=== PATIENT | male | born 1970 | race Caucasian/White ===

== ENCOUNTER 2023-04-25 09:11 | Outpatient (CLI) | payer OTHER, MEDICAID | END 2023-04-25 09:12 | disposition home or self-care (01) | LOC: CSHWCC 09:11 | PROVIDERS: ATTEND Physician Assistant | DX: E10.21 Type 1 diabetes mellitus with diabetic nephropathy (principal); L97.222 Non-pressure chronic ulcer of left calf with fat layer exposed; I73.9 Peripheral vascular disease, unspecified; N18.6 End stage renal disease; Z71.6 Tobacco abuse counseling | CPT/HCPCS: 97597; 97598; G0463; 99215 ==

== ENCOUNTER 2023-04-28 08:28 | Outpatient (CLI) | payer OTHER, MEDICAID | END 2023-04-28 08:29 | disposition home or self-care (01) | LOC: CSHWCC 08:28 | PROVIDERS: ATTEND Physician Assistant | DX: L97.222 Non-pressure chronic ulcer of left calf with fat layer exposed (principal); I73.9 Peripheral vascular disease, unspecified | CPT/HCPCS: 99211; G0463 ==

== ENCOUNTER 2023-05-07 08:25 | Outpatient (CLI) | payer OTHER, MEDICAID | END 2023-05-07 08:26 | disposition home or self-care (01) | LOC: CSHWCC 08:25 | PROVIDERS: ATTEND Preventive Medicine Undersea and Hyperbaric Medicine | DX: E10.21 Type 1 diabetes mellitus with diabetic nephropathy (principal); E11.51 Type 2 diabetes mellitus with diabetic peripheral angiopathy without gangrene; E10.22 Type 1 diabetes mellitus with diabetic chronic kidney disease; N18.6 End stage renal disease; I87.2 Venous insufficiency (chronic) (peripheral); Z71.6 Tobacco abuse counseling | CPT/HCPCS: 11042; 11045; 29581 ==

== ENCOUNTER 2023-05-13 10:12 | Outpatient (CLI) | payer OTHER, MEDICAID | END 2023-05-13 10:13 | disposition home or self-care (01) | LOC: CSHWCC 10:12 | PROVIDERS: ATTEND Physician Assistant | DX: I87.2 Venous insufficiency (chronic) (peripheral) (principal); E10.21 Type 1 diabetes mellitus with diabetic nephropathy; E10.22 Type 1 diabetes mellitus with diabetic chronic kidney disease; N18.6 End stage renal disease; I73.9 Peripheral vascular disease, unspecified; Z71.6 Tobacco abuse counseling | CPT/HCPCS: 29581; 87070; 87077; 87186; 87205; 97597; 97598; G0463; 99213 ==

== ENCOUNTER 2023-05-20 09:05 | Outpatient (CLI) | payer OTHER, MEDICAID | END 2023-05-20 09:06 | disposition home or self-care (01) | LOC: CSHWCC 09:05 | PROVIDERS: ATTEND Physician Assistant | DX: I87.2 Venous insufficiency (chronic) (peripheral) (principal); I73.9 Peripheral vascular disease, unspecified; E10.21 Type 1 diabetes mellitus with diabetic nephropathy; N18.6 End stage renal disease; Z71.6 Tobacco abuse counseling | CPT/HCPCS: 29581 ==

== ENCOUNTER 2023-05-23 08:47 | Outpatient (CLI) | payer OTHER, MEDICAID | END 2023-05-23 08:48 | disposition home or self-care (01) | LOC: CSHWCC 08:47 | PROVIDERS: ATTEND Physician Assistant | DX: E10.21 Type 1 diabetes mellitus with diabetic nephropathy (principal); E10.22 Type 1 diabetes mellitus with diabetic chronic kidney disease; I73.9 Peripheral vascular disease, unspecified; I87.2 Venous insufficiency (chronic) (peripheral); N18.6 End stage renal disease; Z71.6 Tobacco abuse counseling | CPT/HCPCS: 29581 ==

== ENCOUNTER 2023-05-27 10:29 | Outpatient (CLI) | payer OTHER, MEDICAID | END 2023-05-27 10:30 | disposition home or self-care (01) | LOC: CSHWCC 10:29 | PROVIDERS: ATTEND Physician Assistant | DX: E10.21 Type 1 diabetes mellitus with diabetic nephropathy (principal); L97.222 Non-pressure chronic ulcer of left calf with fat layer exposed; I87.2 Venous insufficiency (chronic) (peripheral); N18.6 End stage renal disease; I73.9 Peripheral vascular disease, unspecified; Z71.6 Tobacco abuse counseling | CPT/HCPCS: 29581; 97597 ==

== ENCOUNTER 2023-06-17 11:08 | Outpatient (CLI) | payer OTHER, MEDICAID | END 2023-06-17 11:09 | disposition home or self-care (01) | LOC: CSHWCC 11:08 | PROVIDERS: ATTEND Preventive Medicine Undersea and Hyperbaric Medicine | DX: E10.21 Type 1 diabetes mellitus with diabetic nephropathy (principal); E10.51 Type 1 diabetes mellitus with diabetic peripheral angiopathy without gangrene; E10.22 Type 1 diabetes mellitus with diabetic chronic kidney disease; N18.6 End stage renal disease; I87.2 Venous insufficiency (chronic) (peripheral); L97.222 Non-pressure chronic ulcer of left calf with fat layer exposed; Z99.2 Dependence on renal dialysis; Z71.6 Tobacco abuse counseling | CPT/HCPCS: 29581 ==

== ENCOUNTER 2023-06-20 11:17 | Outpatient (CLI) | payer OTHER, MEDICAID | END 2023-06-20 11:18 | disposition home or self-care (01) | LOC: CSHWCC 11:17 | PROVIDERS: ATTEND Preventive Medicine Undersea and Hyperbaric Medicine | DX: E10.622 Type 1 diabetes mellitus with other skin ulcer (principal); L97.222 Non-pressure chronic ulcer of left calf with fat layer exposed; E10.51 Type 1 diabetes mellitus with diabetic peripheral angiopathy without gangrene; E10.22 Type 1 diabetes mellitus with diabetic chronic kidney disease; N18.6 End stage renal disease; I87.2 Venous insufficiency (chronic) (peripheral); Z71.6 Tobacco abuse counseling; Z99.2 Dependence on renal dialysis | CPT/HCPCS: 29581 ==

== ENCOUNTER 2023-06-24 15:16 | Outpatient (CLI) | payer OTHER, MEDICAID | END 2023-06-24 15:17 | disposition home or self-care (01) | LOC: CSHWCC 15:16 | PROVIDERS: ATTEND Preventive Medicine Undersea and Hyperbaric Medicine | DX: E10.21 Type 1 diabetes mellitus with diabetic nephropathy (principal); E10.51 Type 1 diabetes mellitus with diabetic peripheral angiopathy without gangrene; E10.22 Type 1 diabetes mellitus with diabetic chronic kidney disease; N18.6 End stage renal disease; I87.2 Venous insufficiency (chronic) (peripheral); L97.222 Non-pressure chronic ulcer of left calf with fat layer exposed; Z99.2 Dependence on renal dialysis; Z71.6 Tobacco abuse counseling ==

== ENCOUNTER 2023-06-27 11:08 | Outpatient (CLI) | payer OTHER, MEDICAID | END 2023-06-27 11:09 | disposition home or self-care (01) | LOC: CSHWCC 11:08 | PROVIDERS: ATTEND Preventive Medicine Undersea and Hyperbaric Medicine | DX: E10.21 Type 1 diabetes mellitus with diabetic nephropathy (principal); E10.622 Type 1 diabetes mellitus with other skin ulcer; L97.222 Non-pressure chronic ulcer of left calf with fat layer exposed; I73.9 Peripheral vascular disease, unspecified; N18.6 End stage renal disease; I87.2 Venous insufficiency (chronic) (peripheral); Z71.6 Tobacco abuse counseling | CPT/HCPCS: 29581 ==

== ENCOUNTER 2023-07-01 09:10 | Outpatient (CLI) | payer OTHER, MEDICAID | END 2023-07-01 09:11 | disposition home or self-care (01) | LOC: CSHWCC 09:10 | PROVIDERS: ATTEND Physician Assistant | DX: L97.222 Non-pressure chronic ulcer of left calf with fat layer exposed (principal); I87.2 Venous insufficiency (chronic) (peripheral); E11.21 Type 2 diabetes mellitus with diabetic nephropathy; E11.22 Type 2 diabetes mellitus with diabetic chronic kidney disease; N18.6 End stage renal disease; E11.59 Type 2 diabetes mellitus with other circulatory complications; Z71.6 Tobacco abuse counseling | CPT/HCPCS: 29581; G0463; 99213 ==

== ENCOUNTER 2023-07-04 11:47 | Outpatient (CLI) | payer OTHER, MEDICAID | END 2023-07-04 11:48 | disposition home or self-care (01) | LOC: CSHWCC 11:47 | PROVIDERS: ATTEND Physician Assistant | DX: E11.21 Type 2 diabetes mellitus with diabetic nephropathy (principal); E11.622 Type 2 diabetes mellitus with other skin ulcer; L97.222 Non-pressure chronic ulcer of left calf with fat layer exposed; I87.2 Venous insufficiency (chronic) (peripheral); I73.9 Peripheral vascular disease, unspecified; N18.6 End stage renal disease; Z71.6 Tobacco abuse counseling | CPT/HCPCS: 29581 ==

== ENCOUNTER 2023-07-07 15:11 | Outpatient (CLI) | payer OTHER, MEDICAID | END 2023-07-07 15:12 | disposition home or self-care (01) | LOC: CSHWCC 15:11 | PROVIDERS: ATTEND Physician Assistant | DX: I87.2 Venous insufficiency (chronic) (peripheral) (principal); E11.21 Type 2 diabetes mellitus with diabetic nephropathy; L97.222 Non-pressure chronic ulcer of left calf with fat layer exposed; I73.9 Peripheral vascular disease, unspecified; N18.6 End stage renal disease; Z71.6 Tobacco abuse counseling | CPT/HCPCS: 29581; 97597 ==

== ENCOUNTER 2023-07-14 11:54 | Outpatient (CLI) | payer OTHER, MEDICAID | END 2023-07-14 11:55 | disposition home or self-care (01) | LOC: CSHWCC 11:54 | PROVIDERS: ATTEND Nurse Practitioner Family | DX: I87.2 Venous insufficiency (chronic) (peripheral) (principal); E11.21 Type 2 diabetes mellitus with diabetic nephropathy; E11.22 Type 2 diabetes mellitus with diabetic chronic kidney disease; L97.222 Non-pressure chronic ulcer of left calf with fat layer exposed; I73.9 Peripheral vascular disease, unspecified; N18.6 End stage renal disease; Z71.6 Tobacco abuse counseling | CPT/HCPCS: 97597 ==

== ENCOUNTER 2023-07-21 10:29 | Outpatient (CLI) | payer OTHER, MEDICAID | END 2023-07-21 10:30 | disposition home or self-care (01) | LOC: CSHWCC 10:29 | PROVIDERS: ATTEND Nurse Practitioner Family | DX: E11.622 Type 2 diabetes mellitus with other skin ulcer (principal); I87.2 Venous insufficiency (chronic) (peripheral); E11.21 Type 2 diabetes mellitus with diabetic nephropathy; E11.22 Type 2 diabetes mellitus with diabetic chronic kidney disease; N18.6 End stage renal disease; L97.222 Non-pressure chronic ulcer of left calf with fat layer exposed; I73.9 Peripheral vascular disease, unspecified; Z71.6 Tobacco abuse counseling | CPT/HCPCS: 11042; 87070; 87077; 87186; 87205; 97597 ==

== ENCOUNTER 2023-07-28 10:58 | Outpatient (CLI) | payer OTHER, MEDICAID | END 2023-07-28 10:59 | disposition home or self-care (01) | LOC: CSHWCC 10:58 | PROVIDERS: ATTEND Nurse Practitioner Family | DX: E11.622 Type 2 diabetes mellitus with other skin ulcer (principal); I87.2 Venous insufficiency (chronic) (peripheral); E11.22 Type 2 diabetes mellitus with diabetic chronic kidney disease; E11.21 Type 2 diabetes mellitus with diabetic nephropathy; N18.6 End stage renal disease; L97.222 Non-pressure chronic ulcer of left calf with fat layer exposed; L97.321 Non-pressure chronic ulcer of left ankle limited to breakdown of skin; I73.9 Peripheral vascular disease, unspecified; Z71.6 Tobacco abuse counseling | CPT/HCPCS: 11042 ==

== ENCOUNTER 2023-08-05 16:05 | Outpatient (CLI) | payer OTHER, MEDICAID, MEDICARE | END 2023-08-05 16:06 | disposition home or self-care (01) | LOC: CSHWCC 16:05 | PROVIDERS: ATTEND Nurse Practitioner Family | DX: E11.622 Type 2 diabetes mellitus with other skin ulcer (principal); L97.222 Non-pressure chronic ulcer of left calf with fat layer exposed; L97.321 Non-pressure chronic ulcer of left ankle limited to breakdown of skin; E11.51 Type 2 diabetes mellitus with diabetic peripheral angiopathy without gangrene; E11.22 Type 2 diabetes mellitus with diabetic chronic kidney disease; N18.6 End stage renal disease; I87.2 Venous insufficiency (chronic) (peripheral); Z71.6 Tobacco abuse counseling; Z99.2 Dependence on renal dialysis | CPT/HCPCS: 99213; G0463 ==

== ENCOUNTER 2025-05-23 13:27 | Outpatient (CLI) | payer OTHER | END 2025-05-23 13:28 | disposition home or self-care (01) | LOC: CSHWCC 13:27 | PROVIDERS: ATTEND Nurse Practitioner Family | DX: E11.621 Type 2 diabetes mellitus with foot ulcer (principal); L97.822 Non-pressure chronic ulcer of other part of left lower leg with fat layer exposed; E11.51 Type 2 diabetes mellitus with diabetic peripheral angiopathy without gangrene; E11.22 Type 2 diabetes mellitus with diabetic chronic kidney disease; N18.6 End stage renal disease; M86.172 Other acute osteomyelitis, left ankle and foot | CPT/HCPCS: 97597; 99213; G0463 ==

== ENCOUNTER 2025-05-26 12:55 | Outpatient (CLI) | payer OTHER | END 2025-05-26 12:56 | disposition home or self-care (01) | LOC: CSHWCC 12:55 | PROVIDERS: ATTEND Nurse Practitioner Family | DX: E11.621 Type 2 diabetes mellitus with foot ulcer (principal); L97.822 Non-pressure chronic ulcer of other part of left lower leg with fat layer exposed; E11.51 Type 2 diabetes mellitus with diabetic peripheral angiopathy without gangrene; I73.9 Peripheral vascular disease, unspecified; E11.22 Type 2 diabetes mellitus with diabetic chronic kidney disease; N18.6 End stage renal disease; M86.172 Other acute osteomyelitis, left ankle and foot ==